=== PATIENT | male | born 1965 | race African-American/Black ===

== ENCOUNTER 2018-12-22 14:09 | Emergency (ER) | payer SELFPAY ==
--- NOTE | 2018-12-22 14:19 | ED.PDOC ---
History of Present Illness - General Chief Complaint: Neuro Symptoms/Deficits Stated Complaint: Seizure activity; has hx of seizures Time Seen by Provider: 12/22/18 14:19 Source: EMS Exam Limitations: clinical condition - non verbal, physical impairment - History of Present Illness Initial Comments: Sandip Nicholas 53 y/o male [place] resident[place] at [facility] brought by EMS after a w itness seizure episode at [place].Has history of Seizure disorder on Keppra and Dilantin and was recently been admitted to the facility yesterday.No records sent from the facility.Patient non verbal but awake and just mumbles. Noted had jerky movements on the right upper and lower extremities.Nurses from [facility] stated he came fro [facility] with DX-SZ disorder;metabolic encephalopathy. Timing/Duration: 1-3 hours Severity: moderate Improving Factors: nothing Worsening Factors: nothing Associated Symptoms: seizures Allergies/Adverse Reactions: Allergies Codeine Allergy (Verified 12/22/18 14:12) Unknown Home Medications: Ambulatory Orders Albuterol Sulfate [Proair Hfa] 2 puff INH Q6H PRN 12/22/18 Aspirin [Aspirin Regimen Low Dose/] 81 mg PO DAILY 12/22/18 Bisacodyl [Dulcolax Tab] 10 mg PO DAILY 12/22/18 Docusate Sodium [Colace Cap] 100 mg PO DAILY 12/22/18 Ergocalciferol [Vitamin D] 50,000 unit PO WKLY 12/22/18 Folic Acid 1 mg PO DAILY 12/22/18 Levetiracetam [Keppra] 1,000 mg PO BID 12/22/18 Multiple Vitamin [Multivitamins] 1 cap PO DAILY 12/22/18 Phenylephrine-Mineral Oil-Angelo [Preparation H] 1 oin [place] BID PRN 12/22/18 Phenytoin Sodium Extended 200 mg PO DAILY 12/22/18 Polyethylene Glycol 3350 [Miralax] 17 gm PO DAILY 12/22/18 Sennosides [Senokot] 8.6 mg PO BID PRN 12/22/18 Sodium Chloride 1 gm PO DAILY 12/22/18 Thiamine HCl [Thiamine] 100 mg PO DAILY 12/22/18 Review of Systems - Review of Systems Neurological: States: seizure Unable to Obtain Due To: condition, other - non verbal Past Medical History (General) - Patient Medical History Hx Seizures: Yes Surgical History: other - unknown Family Medical History - Family History Father Family History: Unknown Living Status: Unknown Physical Exam - Physical Exam General Appearance: Alert, No apparent distress Eye Exam: bilateral other - follows objects being shown ENT Exam: normal ENT inspection, other - no oral /dental injury but several decayed teeth Neck: supple, normal inspection, trachea midline Respiratory: chest non-tender, lungs clear, normal breath sounds, no respiratory distress Cardiovascular/Chest: normal peripheral pulses, regular rate, rhythm, no murmur Peripheral Pulses: radial,right: 2+, radial,left: 2+ Gastrointestinal/Abdominal: normal bowel sounds, non tender, soft Back Exam: no vertebral tenderness Extremities Exam: non-tender 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 hearing - stares when talked to, PERRL Motor/Sensory: negative Babinski's sign Skin Exam: normal color, warm/dry Progress - Progress Progress: 12/22/18 14:43 Vital Signs - 8 hr 12/22/18 14:09 Temperature 98.1 F Pulse Rate [ 104 H Left Radial] Respiratory 20 Rate Blood Pressure 169/104 [Left Arm] O2 Sat by Pulse 94 L Oximetry 12/22/18 17:24 No further seizure activity noted;patient awake but just mumbles when talked to 12/22/18 17:25 - Results/Orders Results/Orders: His Lactic Acid level slightly elevated from his previous seizure episodes at [place] and has normal CBC and CXR showing COPD changes but no consolidation;No observed seizures in ER after Lorazepam 2 mg iv was given on his arrival. 12/22/18 14:20 URINALYSIS Stat 12/22/18 14:52 LEVETIRACETAM (KEPPRA) Stat 12/22/18 15:45 Magnesium Sulfate Premix 2Gm 2 gm Premix Bag 1 bag IVPB ONCE 12/22/18 15:57 levETIRAcetam INJ [Keppra INJECTION] 500 mg Sodium Chloride 0.9% 100Ml [NS (NACL 0.9%) 100ml] 100 ml IVPB ONCE Laboratory Results - last 24 hr 12/22/18 12/22/18 14:36 14:36 WBC 5.7 RBC 3.99 L Hgb 12.0 L Hct 36.1 L MCV 90.6 MCH 30.2 MCHC 33.3 RDW 14.2 Plt Count 252 MPV 6.1 L Absolute Neuts (auto) 4.20 Absolute Lymphs (auto) 0.90 L Absolute Monos (auto) 0.50 Absolute Eos (auto) 0.10 Absolute Basos (auto) 0.00 Neutrophils % 73.6 Lymphocytes % 15.7 L Monocytes % 8.5 Eosinophils % 1.8 Basophils % 0.4 PT 11.7 H INR 1.17 H PTT (SP) 29.0 Sodium 128 L Potassium 3.2 L Chloride 92 L Carbon Dioxide 24 Anion Gap 15.2 BUN 13 Creatinine 0.50 L BUN/Creatinine Ratio 26.0 H Random Glucose 133 H Serum Osmolality 259.1 L Lactic Acid 3.6 H* Calcium 9.2 Magnesium 1.5 L Total Bilirubin 0.3 Direct Bilirubin < 0.1 Indirect Bilirubin 0.2 AST 52 H ALT 50 Alkaline Phosphatase 69 Creatine Kinase 75 CK-MB (CK-2) 1.5 CK-MB (CK-2) % Not Reportable Troponin I < 0.02 Serum Total Protein 9.5 H Albumin 4.2 Phenytoin 10.3 - EKG/XRAY/CT XRAY: chest - COPD changes CT Ordered: Yes - Head-no acute intracranial abormalities Departure - Departure Clinical Impression: Seizure disorder, Electrolyte imbalance, Hypomagnesemia Time of Disposition: 17:24 Disposition: Discharge to SNF Condition: Fair Departure Forms: ED Discharge - Pt. Copy, Patient Portal Self Enrollment Referrals: PASCUAL MUSA [Primary Care Provider] - 1-2 Weeks Home Medications: Ambulatory Orders Albuterol Sulfate [Proair Hfa] 2 puff INH Q6H PRN 12/22/18 Aspirin [Aspirin Regimen Low Dose/] 81 mg PO DAILY 12/22/18 Bisacodyl [Dulcolax Tab] 10 mg PO DAILY 12/22/18 Docusate Sodium [Colace Cap] 100 mg PO DAILY 12/22/18 Ergocalciferol [Vitamin D] 50,000 unit PO WKLY 12/22/18 Folic Acid 1 mg PO DAILY 12/22/18 Levetiracetam [Keppra] 1,000 mg PO BID 12/22/18 Multiple Vitamin [Multivitamins] 1 cap PO DAILY 12/22/18 Phenylephrine-Mineral Oil-Angelo [Preparation H] 1 oin OK BID PRN 12/22/18 Phenytoin Sodium Extended 200 mg PO DAILY 12/22/18 Polyethylene Glycol 3350 [Miralax] 17 gm PO DAILY 12/22/18 Sennosides [Senokot] 8.6 mg PO BID PRN 12/22/18 Sodium Chloride 1 gm PO DAILY 12/22/18 Thiamine HCl [Thiamine] 100 mg PO DAILY 12/22/18 Additional Instructions: Continue with all [facility] medications;Return to ER as needed
[2018-12-22 14:26] VITALS: TEMP 98.1
[2018-12-22] MEDS ORDERED: SODIUM CHLORIDE 0.9% 500ML 500 ML IVS ONE (15:22)
--- NOTE | 2018-12-22 15:30 | RAD ---
EXAM DESCRIPTION: Chest,1 View CLINICAL HISTORY: 53 years Male seizure COMPARISON: None TECHNIQUE: A single frontal projection of the chest is obtained. FINDINGS: Heart: Allowing for magnification factors related to AP portable technique and large body habitus , the heart is normal in size and configuration . Vasculature: The aorta is unremarkable with the exception of mild tortuosity and atherosclerosis. The pulmonary vascularity is normal. Mediastinum: Unremarkable otherwise. No evidence of mass or adenopathy. Lungs: Hyperinflation and hyperlucency of the lungs is consistent with COPD, more specifically centrilobular emphysema or reactive airway disease. There is mild interstitial prominence. There is no focal consolidation in the lungs. Suspect a tiny calcified granuloma in the left midlung. Pleural spaces: There are no pleural effusions. There are no pneumothoraces. Osseous structures: There is no evidence of acute fracture, osseous destruction or osteoblastic lesions. There is a mild dextroconvex thoracic curve. Tubes and catheters: None. Upper abdomen: No acute findings. Chest wall: Unremarkable. IMPRESSION: COPD without evidence of acute consolidative pneumonia. Remainder of findings as described above. 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
[2018-12-22] MEDS ORDERED: MAGNESIUM SULFATE PREMIX 2GM 2 GM in PREMIX BAG 1 BAG IVPB ONE (15:45)
[2018-12-22] MEDS ORDERED: MAGNESIUM SULFATE PREMIX 2GM 50 ML IVPB ONE (15:46)
[2018-12-22] MEDS ORDERED: levETIRAcetam INJ 500 MG in SODIUM CHLORIDE 0.9% 100ML 100 ML IVPB ONE (15:57)
[2018-12-22] MEDS ORDERED: levETIRAcetam INJ 100 MG/ML VIAL IVPB ONE (15:58)
[2018-12-22] MEDS ORDERED: SODIUM CHLORIDE 0.9% 100ML 100 ML IVPB ONE (15:58)
--- NOTE | 2018-12-22 17:05 | CT ---
EXAM: CT Head CLINICAL INDICATION: Seizures COMPARISON: There is no previous study for comparison. TECHNIQUE: The CT scan was done using contiguous axial 2.5 mm sections through the brain. This exam was performed according to our departmental dose-optimization program, which includes automated exposure control, adjustment of the mA and/or kV according to patient size and/or use of iterative reconstruction technique. FINDINGS: There is no midline shift, mass effect, or extraaxial fluid collection. There is no evidence of acute intracranial hemorrhage, mass lesion, or cerebral edema. The ventricles and cortical sulci are normal for the patient's age. Bone window images reveal no evidence of a skull fracture. IMPRESSION: No evidence of an acute intracranial process. Electronically signed by: eJfe Collins MD 12/22/2018 5:03 PM RESISTOR INSPECTOR
[2018-12-22 17:53] VITALS: BP 164/86; O2SAT 97
== END 2018-12-22 17:54 ==
LOC: ER 14:09
DX: G40.909 Epilepsy, unspecified, not intractable, without status epilepticus (principal); E87.8 Other disorders of electrolyte and fluid balance, not elsewhere classified; E83.42 Hypomagnesemia; G93.41 Metabolic encephalopathy; Z79.899 Other long term (current) drug therapy; Z79.82 Long term (current) use of aspirin
CPT/HCPCS: 36415; 70450; 71045; 80048; 80076; 80177; 80185; 81001; 82550; 82553; 83605; 84484; 85025; 85610; 85730; J2060; J3475; J7040; J7050

== ENCOUNTER 2019-01-14 13:16 | Emergency (ER) | payer SELFPAY ==
--- NOTE | 2019-01-14 14:12 | CT ---
EXAM DESCRIPTION: Head CT CLINICAL HISTORY: Head lac sp fall COMPARISON: December 22, 2018 TECHNIQUE: Non contrast cranial CT FINDINGS: Ventricles and sulci are unremarkable. There is no hemorrhage or mass. There are no white matter abnormalities detected. Extracranial/scalp hematoma right frontal region. No subjacent calvarial or brain injury. The visualized paranasal sinuses and the mastoids are clear. IMPRESSION: 1. Right frontal scalp hematoma This exam was performed according to our departmental dose-optimization program, which includes automated exposure control, adjustment of the mA and/or kV according to patient size and/or use of iterative reconstruction technique. Electronically signed by: Chandan Higgins MD 01/14/2019 2:09 PM CDT
[2019-01-14] MEDS ORDERED: LIDOCAINE 1% 10 ML VIAL INJ ONE (15:40)
[2019-01-14] MEDS ORDERED: CHLORHEXIDINE GLUCONATE 4 % 15 ML UD TOP ONE (15:44)
[2019-01-14] MEDS ORDERED: NEOMYCIN-BACITRACIN-POLYMYXIN 0.9 GM UD TOP ONE (16:13)
--- NOTE | 2019-01-14 16:20 | ED.PDOC ---
History of Present Illness - General Chief Complaint: Trauma Stated Complaint: Pt fell and hit his head Time Seen by Provider: 01/14/19 14:11 Source: EMS notes reviewed, RN/MD, senior living records Exam Limitations: other - MENTAL DISABILITY - History of Present Illness Initial Comments: PT FOUND ON FLOOR AT RETIREMENT WHERE HE RESIDES. PT DOES NOT AMBULATE AND IS WHEEL CHAIR BOUND. NO SEIZURE ACTIVITY REPORTED. PT SUSTAINED LACERATION TO FOREHEAD AND UPPER LIP. HE HAS MINIMAL CAPACITY TO COMMUNICATE AT BASELINE SO HPI AND ROS LIMITED. Severity: mild Improving Factors: nothing Worsening Factors: nothing Associated Symptoms: denies symptoms Allergies/Adverse Reactions: Allergies Codeine Allergy (Verified 01/14/19 13:55) Unknown Home Medications: Ambulatory Orders Albuterol Sulfate [Proair Hfa] 2 puff INH Q6H PRN 12/22/18 Aspirin [Aspirin Regimen Low Dose/] 81 mg PO DAILY 12/22/18 Bisacodyl [Dulcolax Tab] 10 mg PO DAILY 12/22/18 Docusate Sodium [Colace Cap] 100 mg PO DAILY 12/22/18 Ergocalciferol [Vitamin D] 50,000 unit PO WKLY 12/22/18 Folic Acid 1 mg PO DAILY 12/22/18 Levetiracetam [Keppra] 1,000 mg PO BID 12/22/18 Multiple Vitamin [Multivitamins] 1 cap PO DAILY 12/22/18 Phenylephrine-Mineral Oil-Angelo [Preparation H] 1 oin [place] BID PRN 12/22/18 Phenytoin Sodium Extended 200 mg PO DAILY 12/22/18 Polyethylene Glycol 3350 [Miralax] 17 gm PO DAILY 12/22/18 Sennosides [Senokot] 8.6 mg PO BID PRN 12/22/18 Sodium Chloride 1 gm PO DAILY 12/22/18 Thiamine HCl [Thiamine] 100 mg PO DAILY 12/22/18 Review of Systems - Review of Systems Constitutional: States: see HPI EENTM: States: see HPI Respiratory: States: see HPI Cardiology: States: see HPI Gastrointestinal/Abdominal: States: see HPI Genitourinary: States: see HPI Musculoskeletal: States: see HPI Skin: States: see HPI Neurological: States: see HPI Endocrine: States: see HPI Unable to Obtain Due To: other - ENCEPHALOPATHY Past Medical History (General) - Patient Medical History Hx Seizures: Yes Hx Stroke: No Hx Asthma: Yes Hx Congestive Heart Failure: No Hx Diabetes: No Hx MRSA: No Hx Other PMH: Yes - METABOLIC ENCEPHALOPATHY - Vaccination History Hx Influenza Vaccination: - Unknown Hx Pneumococcal Vaccination: - Unknown - Social History Hx Tobacco Use: No - Activities of Daily Living Senior Care/Assisted Living (if applicable):: [facility] Family Medical History - Family History Father Family History: Unknown Living Status: Unknown Physical Exam - Physical Exam General Appearance: Alert, Anxious, Restless, Well Hydrated Eye Exam: bilateral normal Ears, Nose, Throat: normal ENT inspection Neck: non-tender, full range of motion, supple, normal inspection Respiratory: lungs clear, normal breath sounds, no respiratory distress, no accessory muscle use Cardiovascular/Chest: regular rate, rhythm, no edema Gastrointestinal/Abdominal: non tender, soft Back Exam: normal inspection, no vertebral tenderness Extremity: normal range of motion, non-tender, normal inspection, pelvis stable Neurologic: alert, aphasia Skin Exam: normal color, warm/dry, other - 1.5CM LACERATION TO RIGHT BROW, 1.5 CM LACERATION TO RIGHT PHILTHRUM Progress - Progress Progress: 01/14/19 16:24 PT RESTING COMFORTABLY, NO COMPLAINT EXCEPT BEING COLD. TOLERATED PROCEDURE WELL. WILL D/C BACK TO [facility]. SUTURE REMOVAL IN 5-7 DAYS. - EKG/XRAY/CT CT: HEAD CT Ordered: Yes - NO INTRACRANIAL INJURY PER RAD CT Interpretation Call Back: No Procedures - Laceration/Wound Repair Right Face Wound Length (cm): 3.0 - TOTAL LENGTH OF R BROW AND R PHILTHRUM LAC Wound's Depth, Shape: superficial, linear Wound Explored: no foreign body removed Irrigated w/ Saline (cc's): 250 Betadine Prep?: Yes - HIBICLENS Anesthesia: 1% Lidocaine Volume Anesthetic (cc's): 8 Wound Repaired With: sutures Suture Size/Type: 5:0, prolene Number of Sutures: 6 Layer Closure?: No Sterile Dressing Applied?: Yes Departure - Departure Clinical Impression: Head injury, Face lacerations Time of Disposition: 16:28 Disposition: Discharge to SNF Condition: Good Departure Forms: ED Discharge - Pt. Copy, Patient Portal Self Enrollment Instructions: Closed Head Injury (DC), Laceration Repair With Stitches (DC) Referrals: PASCUAL MUSA [Primary Care Provider] - 1 Week Home Medications: Ambulatory Orders Albuterol Sulfate [Proair Hfa] 2 puff INH Q6H PRN 12/22/18 Aspirin [Aspirin Regimen Low Dose/] 81 mg PO DAILY 12/22/18 Bisacodyl [Dulcolax Tab] 10 mg PO DAILY 12/22/18 Docusate Sodium [Colace Cap] 100 mg PO DAILY 12/22/18 Ergocalciferol [Vitamin D] 50,000 unit PO WKLY 12/22/18 Folic Acid 1 mg PO DAILY 12/22/18 Levetiracetam [Keppra] 1,000 mg PO BID 12/22/18 Multiple Vitamin [Multivitamins] 1 cap PO DAILY 12/22/18 Phenylephrine-Mineral Oil-Angelo [Preparation H] 1 oin [place] BID PRN 12/22/18 Phenytoin Sodium Extended 200 mg PO DAILY 12/22/18 Polyethylene Glycol 3350 [Miralax] 17 gm PO DAILY 12/22/18 Sennosides [Senokot] 8.6 mg PO BID PRN 12/22/18 Sodium Chloride 1 gm PO DAILY 12/22/18 Thiamine HCl [Thiamine] 100 mg PO DAILY 12/22/18 Additional Instructions: SUTURE REMOVAL IN 5-7 DAYS.
[2019-01-14 17:06] VITALS: BP 124/75; TEMP 96.7; O2SAT 96
== END 2019-01-14 17:05 ==
LOC: ER 13:16
DX: S09.90XA Unspecified injury of head, initial encounter (principal); S01.81XA Laceration without foreign body of other part of head, initial encounter; S01.511A Laceration without foreign body of lip, initial encounter; R56.9 Unspecified convulsions; J45.909 Unspecified asthma, uncomplicated; W19.XXXA Unspecified fall, initial encounter; Y92.129 Unspecified place in nursing home as the place of occurrence of the external cause; Z79.899 Other long term (current) drug therapy; Z79.82 Long term (current) use of aspirin; Z88.5 Allergy status to narcotic agent

== ENCOUNTER 2019-01-16 15:31 | Emergency (ER) | payer SELFPAY ==
--- NOTE | 2019-01-16 17:19 | CT ---
EXAM: CT head without contrast CLINICAL INDICATION: Altered mental status COMPARISON: There is no previous study for comparison. TECHNIQUE: The CT scan was done using contiguous axial 5 mm sections through the brain. This exam was performed according to our departmental dose-optimization program, which includes automated exposure control, adjustment of the mA and/or kV according to patient size and/or use of iterative reconstruction technique. FINDINGS: There is no midline shift, mass effect, or extraaxial fluid collection. There is no evidence of acute intracranial hemorrhage, mass lesion, or cerebral edema. The ventricles and cortical sulci are normal for the patient's age. Bone window images reveal no evidence of a skull fracture. Right periorbital soft tissue swelling is noted. IMPRESSION: No evidence of an acute intracranial process. Electronically signed by: Jefe Collins MD 01/16/2019 5:16 PM CDT
[2019-01-16] MEDS ORDERED: MAGNESIUM CHLORIDE 64 MG TAB ONE (17:26)
[2019-01-16] MEDS: POTASSIUM CHLORIDE 20 MEQ TAB PO ONE (17:38)
--- NOTE | 2019-01-16 19:08 | ED.PDOC ---
History of Present Illness - General Chief Complaint: Problem Stated Complaint: Pt incoherently states he cannot urinate Time Seen by Provider: 01/16/19 15:52 Source: EMS, [facility] records Exam Limitations: clinical condition - History of Present Illness Initial Comments: Patient presents from [facility] with intermittent altered mental status. He has baseline dementia. According to [facility] staff that I spoke with on the phone, they had taken a UA but were waiting for the results. The patient was here two days ago after a fall onto his face and received a CT head, which was negative. The patient presents with a GCS of 14 with a deduction for confused speech. He has no complaints at this time. Timing/Duration: changing over time, intermittent Severity: moderate Improving Factors: nothing Worsening Factors: nothing Associated Symptoms: denies symptoms Allergies/Adverse Reactions: Allergies Codeine Allergy (Verified 01/16/19 15:54) Unknown Home Medications: Ambulatory Orders Albuterol Sulfate [Proair Hfa] 2 puff INH Q6H PRN 12/22/18 Aspirin [Aspirin Regimen Low Dose/] 81 mg PO DAILY 12/22/18 Bisacodyl [Dulcolax Tab] 10 mg PO DAILY 12/22/18 Docusate Sodium [Colace Cap] 100 mg PO DAILY 12/22/18 Ergocalciferol [Vitamin D] 50,000 unit PO WKLY 12/22/18 Folic Acid 1 mg PO DAILY 12/22/18 Levetiracetam [Keppra] 1,000 mg PO BID 12/22/18 Multiple Vitamin [Multivitamins] 1 cap PO DAILY 12/22/18 Phenylephrine-Mineral Oil-Angelo [Preparation H] 1 oin [place] BID PRN 12/22/18 Phenytoin Sodium Extended 200 mg PO DAILY 12/22/18 Polyethylene Glycol 3350 [Miralax] 17 gm PO DAILY 12/22/18 Sennosides [Senokot] 8.6 mg PO BID PRN 12/22/18 Sodium Chloride 1 gm PO DAILY 12/22/18 Thiamine HCl [Thiamine] 100 mg PO DAILY 12/22/18 Escitalopram Oxalate 5 mg PO BEDTIME 01/16/19 Review of Systems - Review of Systems Unable to Obtain Due To: condition, other - history of head injury Past Medical History (General) - Patient Medical History Hx Seizures: Yes Hx Stroke: No Hx Asthma: Yes Hx Congestive Heart Failure: No Hx Diabetes: No Hx MRSA: No - Vaccination History Hx Influenza Vaccination: - Unknown Hx Pneumococcal Vaccination: - Unknown - Social History Hx Tobacco Use: - Unk Hx Alcohol Use: - Unk Hx Substance Use: - Unk Hx Depression: - Unk - Activities of Daily Living Longterm/Assisted Living (if applicable):: [facility] - Female History Patient is a Female of Child Bearing Age (10 -59 yrs old): No Family Medical History - Family History Father Family History: Unknown Living Status: Unknown Physical Exam - Physical Exam General Appearance: Alert, Restless Eye Exam: bilateral normal Ears, Nose, Throat: normal ENT inspection Neck: non-tender, full range of motion, supple Respiratory: lungs clear, normal breath sounds Cardiovascular/Chest: normal peripheral pulses, regular rate, rhythm, no edema Gastrointestinal/Abdominal: normal bowel sounds, non tender, soft Back Exam: no CVA tenderness Extremity: normal range of motion, non-tender, normal inspection 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 Skin Exam: normal color Lymphatic: no adenopathy Progress - Progress Progress: 01/16/19 22:27 Laboratory Tests 01/16/19 01/16/19 01/16/19 16:05 16:05 16:05 WBC 4.7 L RBC 3.85 L Hgb 11.6 L Hct 34.1 L MCV 88.5 MCH 30.2 MCHC 34.1 RDW 14.2 Plt Count 282 MPV 6.2 L Absolute Neuts (auto) 2.90 Absolute Lymphs (auto) 1.20 Absolute Monos (auto) 0.40 Absolute Eos (auto) 0.10 Absolute Basos (auto) 0.00 Neutrophils % 61.8 Lymphocytes % 26.4 Monocytes % 9.0 Eosinophils % 2.3 Basophils % 0.5 Sodium 125 L Potassium 3.4 L Chloride 92 L Carbon Dioxide 21 Anion Gap 15.4 BUN 12 Creatinine 0.55 L BUN/Creatinine Ratio 21.8 H Random Glucose 107 H Serum Osmolality 251.7 L* Calcium 8.6 Magnesium 1.6 L Total Bilirubin 0.6 AST 26 ALT 21 Alkaline Phosphatase 80 Serum Total Protein 8.5 H Albumin 3.8 Globulin 4.7 H Albumin/Globulin Ratio 0.8 L Urine Color Urine Appearance Urine pH Ur Specific Jal Urine Protein Urine Glucose (UA) Urine Ketones Urine Blood Urine Nitrite Urine Bilirubin Urine Urobilinogen Ur Leukocyte Esterase Urine RBC Urine WBC Ur Epithelial Cells Urine Bacteria Urine Opiates Screen Urine Barbiturates Phenytoin Ur Phencyclidine Scrn U Amphetamin/Meth Scrn U Benzodiazepines Scrn U Cocaine Metab Screen U Cannabinoids Screen 01/16/19 01/16/19 01/16/19 16:05 21:03 21:03 WBC RBC Hgb Hct MCV MCH MCHC RDW Plt Count MPV Absolute Neuts (auto) Absolute Lymphs (auto) Absolute Monos (auto) Absolute Eos (auto) Absolute Basos (auto) Neutrophils % Lymphocytes % Monocytes % Eosinophils % Basophils % Sodium Potassium Chloride Carbon Dioxide Anion Gap BUN Creatinine BUN/Creatinine Ratio Random Glucose Serum Osmolality Calcium Magnesium Total Bilirubin AST ALT Alkaline Phosphatase Serum Total Protein Albumin Globulin Albumin/Globulin Ratio Urine Color Yellow Urine Appearance Clear Urine pH 7.0 Ur Specific Jal 1.015 Urine Protein Negative Urine Glucose (UA) Negative Urine Ketones 15 H Urine Blood Negative Urine Nitrite Negative Urine Bilirubin Negative Urine Urobilinogen 0.2 Ur Leukocyte Esterase Negative Urine RBC 0 Urine WBC 0 Ur Epithelial Cells 0 Urine Bacteria 0 Urine Opiates Screen Negative Urine Barbiturates Negative Phenytoin < 0.5 L Ur Phencyclidine Scrn Negative U Amphetamin/Meth Scrn Negative U Benzodiazepines Scrn Negative U Cocaine Metab Screen Negative U Cannabinoids Screen Negative Patient was unable or unwilling to give urine. Straight cath was attempted but patient became restless. It was decided to let the patient rest after that. However, after several minutes, he became restless and attempted to get out of t he bed several times. Attempting to get up and walk is what caused his fall two days ago which resulted in sutures. The patient was given Geodon 20 mg IM x one and Ativan 1 mg po x one. He became calm and his speech was less confused. He was able to ask for water and say that he wanted [facility]to the [facility]" without problems. He was given a Banana bag x one liter. prison employee Diamond came and communicated to nursing staff that the patient was at his baseline. His CT head was negative, UA negative. UDS negative. Mild decreases in Magnesium and potassium were treated with oral supplementation. EKG showed NSR with no ST changes, T wave inversions, nor LBBB. [facility] to the [facility] with directions to follow up with his pcp for prn control of agitat ion. 01/16/19 22:31 01/16/19 22:33 Departure - Departure Clinical Impression: Agitation Disposition: Discharge to Home or Self Care Condition: Fair Departure Forms: ED Discharge - Pt. Copy, Patient Portal Self Enrollment Diet: resume usual diet Activity: as per physical therapy Referrals: PASCUAL MUSA [Primary Care Provider] - 1-2 Weeks Home Medications: Ambulatory Orders Albuterol Sulfate [Proair Hfa] 2 puff INH Q6H PRN 12/22/18 Aspirin [Aspirin Regimen Low Dose/] 81 mg PO DAILY 12/22/18 Bisacodyl [Dulcolax Tab] 10 mg PO DAILY 12/22/18 Docusate Sodium [Colace Cap] 100 mg PO DAILY 12/22/18 Ergocalciferol [Vitamin D] 50,000 unit PO WKLY 12/22/18 Folic Acid 1 mg PO DAILY 12/22/18 Levetiracetam [Keppra] 1,000 mg PO BID 12/22/18 Multiple Vitamin [Multivitamins] 1 cap PO DAILY 12/22/18 Phenylephrine-Mineral Oil-Angelo [Preparation H] 1 oin AR BID PRN 12/22/18 Phenytoin Sodium Extended 200 mg PO DAILY 12/22/18 Polyethylene Glycol 3350 [Miralax] 17 gm PO DAILY 12/22/18 Sennosides [Senokot] 8.6 mg PO BID PRN 12/22/18 Sodium Chloride 1 gm PO DAILY 12/22/18 Thiamine HCl [Thiamine] 100 mg PO DAILY 12/22/18 Escitalopram Oxalate 5 mg PO BEDTIME 01/16/19 Additional Instructions: Consult with your regular physician for treatment for agitation. Critical Care Note - Critical Care Note Total Time (mins): 65
[2019-01-16] MEDS ORDERED: LORazepam 0.5 MG TAB PO ONE (19:23)
[2019-01-16] MEDS ORDERED: ZIPRASIDONE INJ 20 MG/ML VIAL IM ONE ×2 (19:26→19:36)
[2019-01-16] MEDS ORDERED: [UNRECOGNIZED DRUG - OTHER] IVS SCH (20:00)
[2019-01-16] MEDS ORDERED: FOLIC ACID IVS SCH (20:00)
[2019-01-16] MEDS ORDERED: MULTIPLE VITAMIN IVS SCH (20:00)
[2019-01-16] MEDS ORDERED: THIAMINE HCL IVS SCH (20:00)
--- NOTE | 2019-01-16 20:16 | RAD ---
EXAM: Chest,1 View CLINICAL INDICATION: Altered mental status COMPARISON: 12/22/2018 FINDINGS: A single view of the chest was obtained. The heart size is normal. The pulmonary vascularity is unremarkable. The lungs are clear. There is no consolidation, infiltrate, pleural effusion, or pneumothorax. IMPRESSION: No evidence of active pulmonary disease. Electronically signed by: Jefe Collins MD 01/16/2019 8:12 PM CDT
[2019-01-16] MEDS ORDERED: MULTIPLE VITAMIN 10 ML VIAL ONE (20:42)
[2019-01-16] MEDS ORDERED: THIAMINE HCL INJ 100 MG/ML VIAL ONE (20:44)
[2019-01-16] MEDS ORDERED: FOLIC ACID INJ 5 MG/ML VIAL ONE (20:45)
[2019-01-16] MEDS ORDERED: SODIUM CHLORIDE 0.9% 1000ML 1,000 ML ONE (20:46)
[2019-01-16 22:34] VITALS: BP 165/99; TEMP 96.8; O2SAT 98
[2019-01-17] MEDS ORDERED: MAGNESIUM CHLORIDE 64 MG TAB PO SCH (07:30)
== END 2019-01-16 22:40 | disposition home or self-care (01) ==
LOC: ER 15:31
DX: R45.1 Restlessness and agitation (principal); R33.9 Retention of urine, unspecified; R56.9 Unspecified convulsions; J45.909 Unspecified asthma, uncomplicated; Z79.899 Other long term (current) drug therapy; Z88.5 Allergy status to narcotic agent
CPT/HCPCS: 36415; 70450; 71045; 80053; 80185; 80307; 81001; 83735; 85025; 93005; J3411; J3486; J7030

== ENCOUNTER 2019-03-14 01:42 | Emergency (ER) | payer SELFPAY ==
--- NOTE | 2019-03-14 01:53 | ED.PDOC ---
History of Present Illness - General Time Seen by Provider: 03/14/19 01:48 Source: RN notes reviewed, EMS notes reviewed Additional Information: 53 YEAR OLD BLACK MALE BROUGHT HERE FROM [facility] FOR EVALUATION OF SEIZURES SEVERAL EPISODES TODAY HE HAS BEEN ON KEPPRA 1000 MG Q DAY HE HAS HISTORY OF ALCOHOL ABUSE COCAINE ABUSE TYPE II DM - History of Present Illness Timing/Duration: 24 hours Severity: moderate Improving Factors: nothing Worsening Factors: nothing Allergies/Adverse Reactions: Allergies Codeine Allergy (Verified 03/14/19 02:14) Unknown Home Medications: Ambulatory Orders Albuterol Sulfate [Proair Hfa] 2 puff INH Q6H PRN 12/22/18 Aspirin [Aspirin Regimen Low Dose/] 81 mg PO DAILY 12/22/18 Bisacodyl [Dulcolax Tab] 10 mg PO DAILY 12/22/18 Docusate Sodium [Colace Cap] 100 mg PO DAILY 12/22/18 Ergocalciferol [Vitamin D] 50,000 unit PO WKLY 12/22/18 Folic Acid 1 mg PO DAILY 12/22/18 Levetiracetam [Keppra] 1,000 mg PO BID 12/22/18 Multiple Vitamin [Multivitamins] 1 cap PO DAILY 12/22/18 Phenylephrine-Mineral Oil-Angelo [Preparation H] 1 oin [place] BID PRN 12/22/18 Phenytoin Sodium Extended 200 mg PO DAILY 12/22/18 Polyethylene Glycol 3350 [Miralax] 17 gm PO DAILY 12/22/18 Sennosides [Senokot] 8.6 mg PO BID PRN 12/22/18 Sodium Chloride 1 gm PO DAILY 12/22/18 Thiamine HCl [Thiamine] 100 mg PO DAILY 12/22/18 Escitalopram Oxalate 5 mg PO BEDTIME 01/16/19 Review of Systems - Review of Systems Constitutional: States: no symptoms reported EENTM: States: no symptoms reported Respiratory: States: no symptoms reported Cardiology: States: no symptoms reported Gastrointestinal/Abdominal: States: no symptoms reported Genitourinary: States: no symptoms reported Musculoskeletal: States: no symptoms reported Skin: States: no symptoms reported Neurological: States: see HPI Endocrine: States: no symptoms reported Hematologic/Lymphatic: States: no symptoms reported Past Medical History (General) - Patient Medical History Hx Seizures: Yes Hx Stroke: No Hx Asthma: Yes Hx Congestive Heart Failure: No Hx Diabetes: No Hx MRSA: No - Vaccination History Hx Influenza Vaccination: - Unknown Hx Pneumococcal Vaccination: - Unknown - Social History Hx Tobacco Use: - Unk Hx Alcohol Use: - Unk Hx Substance Use: - Unk Hx Depression: - Unk Family Medical History - Family History Father Family History: Unknown Living Status: Unknown Physical Exam - Physical Exam General Appearance: Lethargic Eye Exam: bilateral normal Ears, Nose, Throat: hearing grossly normal, normal ENT inspection, normal pharynx, abnormal TM (R) Neck: non-tender, full range of motion, supple Respiratory: chest non-tender, lungs clear, normal breath sounds, no respiratory distress, no accessory muscle use, crackles Cardiovascular/Chest: normal peripheral pulses, regular rate, rhythm, no edema, no gallop, no murmur Gastrointestinal/Abdominal: no organomegaly, no pulsatile mass Back Exam: normal inspection, no CVA tenderness, no vertebral tenderness Extremity: normal range of motion, non-tender, normal inspection Neurologic: community dietitian II-XII nml as tested, no motor/sensory deficits, alert, normal mood/affect, oriented x 3 Departure - Departure Clinical Impression: Seizure disorder, Alcohol abuse, Drug abuse Time of Disposition: 03:47 Disposition: Discharge to Home or Self Care Condition: Poor Diet: resume usual diet Referrals: PASCUAL MUSA [Primary Care Provider] - 1-2 Weeks Home Medications: Ambulatory Orders Albuterol Sulfate [Proair Hfa] 2 puff INH Q6H PRN 12/22/18 Aspirin [Aspirin Regimen Low Dose/] 81 mg PO DAILY 12/22/18 Bisacodyl [Dulcolax Tab] 10 mg PO DAILY 12/22/18 Docusate Sodium [Colace Cap] 100 mg PO DAILY 12/22/18 Ergocalciferol [Vitamin D] 50,000 unit PO WKLY 12/22/18 Folic Acid 1 mg PO DAILY 12/22/18 Levetiracetam [Keppra] 1,000 mg PO BID 12/22/18 Multiple Vitamin [Multivitamins] 1 cap PO DAILY 12/22/18 Phenylephrine-Mineral Oil-Angelo [Preparation H] 1 oin [place] BID PRN 12/22/18 Phenytoin Sodium Extended 200 mg PO DAILY 12/22/18 Polyethylene Glycol 3350 [Miralax] 17 gm PO DAILY 12/22/18 Sennosides [Senokot] 8.6 mg PO BID PRN 12/22/18 Sodium Chloride 1 gm PO DAILY 12/22/18 Thiamine HCl [Thiamine] 100 mg PO DAILY 12/22/18 Escitalopram Oxalate 5 mg PO BEDTIME 01/16/19
[2019-03-14] MEDS ORDERED: SODIUM CHLORIDE 0.9% 1000ML 1,000 ML IVS ONE (01:55)
--- NOTE | 2019-03-14 02:12 | RAD ---
EXAM: XR Chest, 1 View CLINICAL HISTORY: The patient is 53 years old and is Male; seizures TECHNIQUE: Frontal view of the chest. COMPARISON: Chest radiograph January 16, 2019. FINDINGS: LUNGS: The lungs are hyperinflated with chronic coarse interstitial markings. A few calcified granuloma within the left lung are noted. There is no lobar consolidation. Scarring within the lung apices is present. PLEURAL SPACE: Unremarkable. No pneumothorax. HEART: The cardiac silhouette is stable. MEDIASTINUM: Unremarkable. BONES/JOINTS: Unremarkable. IMPRESSION: No acute cardiopulmonary process. Electronically signed by: Laura Vásquez MD 03/14/2019 2:10 AM CDT
[2019-03-14] MEDS ORDERED: MIDAZOLAM INJ 5 MG/5 ML VIAL IV ONE (02:13)
[2019-03-14] MEDS ORDERED: MIDAZOLAM INJ 5 MG/5 ML VIAL ONE (02:13)
--- NOTE | 2019-03-14 02:55 | CT ---
CLINICAL HISTORY: SEIZURES COMPARISON: January 16, 2019. TECHNIQUE: CT HEAD WITHOUT IV CONTRAST on 03/14/2019 1:55 AM CDT This exam was performed according to our departmental dose-optimization program, which includes automated exposure control, adjustment of the mA and/or kV according to patient size and/or use of iterative reconstruction technique. FINDINGS: There is no acute hemorrhage, mass effect or midline shift. Ortiz-white differentiation is preserved. There is no hydrocephalus. There is no significant volume loss for age. Study is limited due to extensive motion. The calvarium is intact. Orbits and globes are unremarkable. The paranasal sinuses are clear. Mastoid air cells are clear. IMPRESSION: Extensive motion, limiting study. No gross acute findings. Electronically signed by: Juan Diego Crowley MD 03/14/2019 2:52 AM CDT
[2019-03-14 03:03] VITALS: O2SAT 94
[2019-03-14 04:04] VITALS: BP 136/93; TEMP 96.5
== END 2019-03-14 04:04 | disposition home or self-care (01) ==
LOC: ER 01:42
DX: G40.909 Epilepsy, unspecified, not intractable, without status epilepticus (principal); F10.129 Alcohol abuse with intoxication, unspecified; F14.10 Cocaine abuse, uncomplicated; J45.909 Unspecified asthma, uncomplicated; E11.9 Type 2 diabetes mellitus without complications; Z79.899 Other long term (current) drug therapy; Z79.82 Long term (current) use of aspirin; Z88.5 Allergy status to narcotic agent
CPT/HCPCS: 36415; 70450; 71045; 80053; 80177; 85025; J2250

== ENCOUNTER 2019-03-16 14:45 | Emergency (ER) | payer SELFPAY ==
--- NOTE | 2019-03-16 15:33 | ED.PDOC ---
History of Present Illness - General Chief Complaint: Neuro Symptoms/Deficits Stated Complaint: R sided weakness, seizure activity Time Seen by Provider: 03/16/19 14:50 Source: EMS notes reviewed, snf records Exam Limitations: clinical condition, physical impairment - History of Present Illness Initial Comments: Patient presents from [facility] after a caregiver thought he was having right sided weakness. He then had a witnessed seizure. He has a history of tonic- clonic seizures and takes Keppra. Upon presentation, the patient moves all fours equally and follows instructions. He had a tonic-clonic seizure shortly after arrival that lasted about one minute before resolving on its own. An I.V. was started and he was given 2 mg Ativan. Timing/Duration: unsure Severity: moderate Improving Factors: nothing Worsening Factors: nothing Associated Symptoms: denies symptoms Allergies/Adverse Reactions: Allergies Codeine Allergy (Verified 03/16/19 15:01) Unknown Home Medications: Ambulatory Orders Albuterol Sulfate [Proair Hfa] 2 puff INH Q6H PRN 12/22/18 Aspirin [Aspirin Regimen Low Dose/] 81 mg PO DAILY 12/22/18 Bisacodyl [Dulcolax Tab] 10 mg PO DAILY 12/22/18 Ergocalciferol [Vitamin D] 50,000 unit PO WKLY 12/22/18 Folic Acid 1 mg PO DAILY 12/22/18 Levetiracetam [Keppra] 1,000 mg PO BID 12/22/18 Multiple Vitamin [Multivitamins] 1 cap PO DAILY 12/22/18 Phenylephrine-Mineral Oil-Angelo [Preparation H] 1 oin [place] BID PRN 12/22/18 Polyethylene Glycol 3350 [Miralax] 17 gm PO DAILY 12/22/18 Sennosides [Senokot] 8.6 mg PO BID PRN 12/22/18 Sodium Chloride 1 gm PO DAILY 12/22/18 Thiamine HCl [Thiamine] 100 mg PO DAILY 12/22/18 Escitalopram Oxalate 5 mg PO BEDTIME 01/16/19 Review of Systems - Review of Systems Constitutional: States: no symptoms reported EENTM: States: no symptoms reported Respiratory: States: no symptoms reported Cardiology: States: no symptoms reported Gastrointestinal/Abdominal: States: no symptoms reported Genitourinary: States: no symptoms reported Musculoskeletal: States: no symptoms reported Skin: States: no symptoms reported Neurological: States: see HPI Endocrine: States: no symptoms reported Hematologic/Lymphatic: States: no symptoms reported Past Medical History (General) - Patient Medical History Hx Seizures: Yes Hx Stroke: No Hx Dementia: No Hx Asthma: Yes Hx of COPD: No Hx Cardiac Disorders: No Hx Congestive Heart Failure: No Hx Pacemaker: No Hx Hypertension: Yes Hx Thyroid Disease: No Hx Diabetes: Yes Hx Gastroesophageal Reflux: No Hx Renal Disease: No Hx of HIV: No Hx MRSA: No - Vaccination History Hx Tetanus, Diphtheria Vaccination: - Unknown Hx Influenza Vaccination: Yes Hx Pneumococcal Vaccination: - unknown - Social History Hx Tobacco Use: Yes Hx Alcohol Use: - Unk Hx Substance Use: Yes - Cocaine Hx Substance Use Treatment: - Unknown Hx Depression: - Unk Hx Physical Abuse: No Hx Emotional Abuse: No Hx Suspected Abuse: No - Activities of Daily Living Care Home/Assisted Living (if applicable):: [facility] Family Medical History - Family History Father Family History: Unknown Living Status: Unknown Physical Exam - Physical Exam General Appearance: Alert Eye Exam: bilateral normal Ears, Nose, Throat: normal ENT inspection Neck: non-tender, full range of motion, supple Respiratory: lungs clear, normal breath sounds Cardiovascular/Chest: regular rate, rhythm Gastrointestinal/Abdominal: normal bowel sounds, non tender, soft Extremity: normal range of motion Neurologic: other - Follows commands. Verbalizes spontaneously. Eye opening spontanouse. GCS 14. Patient does have cognitive impairment that is at its baseline. Skin Exam: normal color Lymphatic: no adenopathy Progress - Progress Progress: 03/16/19 18:57 Laboratory Tests 03/16/19 03/16/19 03/16/19 15:04 15:16 15:16 WBC 8.2 RBC 4.38 L Hgb 12.7 L Hct 37.3 L MCV 85.1 MCH 29.0 MCHC 34.0 RDW 15.9 H Plt Count 271 MPV 7.4 Absolute Neuts (auto) 5.20 Absolute Lymphs (auto) 2.00 Absolute Monos (auto) 0.80 Absolute Eos (auto) 0.10 Absolute Basos (auto) 0.10 Neutrophils % 63.9 Lymphocytes % 24.3 Monocytes % 9.9 H Eosinophils % 1.1 Basophils % 0.8 Sodium 129 L Potassium 3.6 Chloride 96 L Carbon Dioxide 22 Anion Gap 14.6 BUN 18 Creatinine 0.64 BUN/Creatinine Ratio 28.1 H POC Glucose 98 Random Glucose 94 Serum Osmolality 260.6 L Calcium 9.4 Magnesium 1.4 L Total Bilirubin 1.8 H D AST 30 ALT 12 Alkaline Phosphatase 47 D Creatine Kinase 243 H* CK-MB (CK-2) 2.6 CK-MB (CK-2) % 1.06 Troponin I < 0.02 Serum Total Protein 8.9 H Albumin 4.1 Globulin 4.8 H Albumin/Globulin Ratio 0.9 L TSH 2.56 Thyroxine (T4) 5.44 L Salicylates Acetaminophen 03/16/19 15:16 WBC RBC Hgb Hct MCV MCH MCHC RDW Plt Count MPV Absolute Neuts (auto) Absolute Lymphs (auto) Absolute Monos (auto) Absolute Eos (auto) Absolute Basos (auto) Neutrophils % Lymphocytes % Monocytes % Eosinophils % Basophils % Sodium Potassium Chloride Carbon Dioxide Anion Gap BUN Creatinine BUN/Creatinine Ratio POC Glucose Random Glucose Serum Osmolality Calcium Magnesium Total Bilirubin AST ALT Alkaline Phosphatase Creatine Kinase CK-MB (CK-2) CK-MB (CK-2) % Troponin I Serum Total Protein Albumin Globulin Albumin/Globulin Ratio TSH Thyroxine (T4) Salicylates < 4.0 Acetaminophen < 10.0 L Patient was Keppra loaded with 1500 mg IV. He had no further seizure activity in the E.R. after four hours of observation. 03/16/19 18:58 Discharged with instructions to have his Keppra levels followed up with by his pcp on Monday. Departure - Departure Clinical Impression: Seizure disorder Disposition: Discharge to SNF Condition: Good Departure Forms: ED Discharge - Pt. Copy, Patient Portal Self Enrollment Diet: resume usual diet Activity: as per physical therapy Referrals: PASCUAL MUSA [Primary Care Provider] - 1-2 Weeks Home Medications: Ambulatory Orders Albuterol Sulfate [Proair Hfa] 2 puff INH Q6H PRN 12/22/18 Aspirin [Aspirin Regimen Low Dose/] 81 mg PO DAILY 12/22/18 Bisacodyl [Dulcolax Tab] 10 mg PO DAILY 12/22/18 Ergocalciferol [Vitamin D] 50,000 unit PO WKLY 12/22/18 Folic Acid 1 mg PO DAILY 12/22/18 Levetiracetam [Keppra] 1,000 mg PO BID 12/22/18 Multiple Vitamin [Multivitamins] 1 cap PO DAILY 12/22/18 Phenylephrine-Mineral Oil-Angelo [Preparation H] 1 oin [place] BID PRN 12/22/18 Polyethylene Glycol 3350 [Miralax] 17 gm PO DAILY 12/22/18 Sennosides [Senokot] 8.6 mg PO BID PRN 12/22/18 Sodium Chloride 1 gm PO DAILY 12/22/18 Thiamine HCl [Thiamine] 100 mg PO DAILY 12/22/18 Escitalopram Oxalate 5 mg PO BEDTIME 01/16/19 Additional Instructions: Follow up with your regular doctor regarding your Keppra levels.
--- NOTE | 2019-03-16 15:35 | CT ---
EXAM: CT Head Without Intravenous Contrast CLINICAL HISTORY: 53 years old and is Male; seizure TECHNIQUE: Axial computed tomography images of the head/brain without intravenous contrast. Sagittal and coronal reformatted images were created and reviewed. This CT exam was performed using one or more of the following dose reduction techniques: automated exposure control, adjustment of the mA and/or kV according to patient size, and/or use of iterative reconstruction technique. COMPARISON: No relevant prior studies available. FINDINGS: Limitations: None. Brain: Unremarkable. No hemorrhage. No significant white matter disease. No edema. Ventricles: Unremarkable. No ventriculomegaly. Bones/joints: Unremarkable. No acute fracture. Soft tissues: Unremarkable. Sinuses: Unremarkable as visualized. No acute sinusitis. Mastoid air cells: Unremarkable as visualized. No mastoid effusion. IMPRESSION: No acute findings. Electronically signed by: Blanca Alegria MD 03/16/2019 3:33 PM CDT
[2019-03-16] MEDS ORDERED: levETIRAcetam INJ 1,500 MG in SODIUM CHLORIDE 0.9% 100ML 100 ML IVPB ONE (16:49)
[2019-03-16] MEDS ORDERED: MAGNESIUM SULFATE PREMIX 2GM 2 GM in PREMIX BAG 1 BAG IVPB ONE (16:49)
[2019-03-16] MEDS ORDERED: levETIRAcetam INJ 100 MG/ML VIAL IVPB ONE (16:53)
[2019-03-16] MEDS ORDERED: SODIUM CHLORIDE 0.9% 100ML 100 ML IVPB ONE (16:53)
[2019-03-16] MEDS ORDERED: MAGNESIUM SULFATE PREMIX 2GM 50 ML IVPB ONE (16:54)
[2019-03-16 19:45] VITALS: BP 137/79; TEMP 97; O2SAT 100
== END 2019-03-16 19:55 ==
LOC: ER 14:45
DX: G40.909 Epilepsy, unspecified, not intractable, without status epilepticus (principal); J45.909 Unspecified asthma, uncomplicated; I10 Essential (primary) hypertension; E11.9 Type 2 diabetes mellitus without complications; Z87.891 Personal history of nicotine dependence; Z79.899 Other long term (current) drug therapy; Z79.82 Long term (current) use of aspirin; Z88.5 Allergy status to narcotic agent
CPT/HCPCS: 36415; 70450; 80053; 80177; 80329; 82550; 82553; 82948; 83735; 84436; 84443; 84484; 85025; 93005; J2060; J3475; J7050

== ENCOUNTER → 2020-04-28 | Outpatient (CLI) | payer MEDICAID | LOC: GOCC 18:03 | PROVIDERS: ATTEND Internal Medicine | DX: R07.0 Pain in throat (principal); R50.9 Fever, unspecified ==

== ENCOUNTER → 2020-05-25 | Outpatient (CLI) | payer MEDICAID | LOC: GOCC 11:46 | PROVIDERS: ATTEND Internal Medicine | DX: J02.9 Acute pharyngitis, unspecified (principal) ==